=== PATIENT | female | born 1970 | race Hispanic/Latino ===

== ENCOUNTER → 2018-08-26 | Outpatient (CLI) | payer BC | LOC: MAMMO 09:18 | PROVIDERS: ATTEND Obstetrics & Gynecology | DX: Z12.31 Encounter for screening mammogram for malignant neoplasm of breast (principal) | CPT/HCPCS: 77067 ==

== ENCOUNTER → 2018-09-24 | Outpatient (CLI) | payer BC ==
--- NOTE | 2018-09-25 08:41 | Diagnostic Imaging Report ---
#[id number] - MGDXRT #UNILATERAL RIGHT DIGITAL DIAGNOSTIC MAMMOGRAM WITH SPOT COMPRESSION: 09/24/2018 Comparison is made to exams dated: 08/26/2018 mammogram and 03/18/2016 mammogram - [facility]. Current study contains 3 films. The tissue of the right breast is heterogeneously dense. This may lower the sensitivity of mammography. There is a 1.7 cm mass in the right breast at 1 o'clock middle depth with an associated calcification. No other significant masses or calcifications are seen in the breast. IMPRESSION: INCOMPLETE: NEEDS ADDITIONAL IMAGING EVALUATION The 1.7 cm mass in the right breast is indeterminate. An ultrasound is recommended and will be performed today. Follow-up with ACR/ACS guidelines. Bert Nunes Jr., D.O. cw/:09/24/2018 13:37:17 Float Phlebotomist: Mayuri SYED(Xin)(Isabel), [facility] Mammogram BI-RADS: 0 Indeterminate
--- NOTE | 2018-09-25 08:41 | Diagnostic Imaging Report ---
#[id number] - USBRELIMRT ULTRASOUND OF THE RIGHT BREAST : 09/24/2018 Comparison is made to exam dated: 09/24/2018 mammogram - [facility]. Color flow and real-time ultrasound were performed on the right breast with scanning from 12-3 o'clock. -There is a small cyst at 12 o'clock 1 cm from the nipple measuring 0.3 x 0.3 x 0.3 cm -There is a hypoechoic nodule with a single foci of calcification at 1 o'clock 2 cm from the nipple measuring 1.0 x 0.6 x 1.0 cm. 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 IMPRESSION: PROBABLY BENIGN - FOLLOW-UP RECOMMENDED A follow-up mammogram and an ultrasound in 6 months is recommended to demonstrate stability. The patient was notified of the need for followup unilateral mammography and ultrasound. Bert Nunes Jr., D.O. cw/:09/24/2018 13:43:33 Deicer Inspector [employer]: DAWSON [facility] [employer], [facility] letter sent: Followup Recommended Ultrasound BI-RADS: 3 Probably benign
== END ==
LOC: MAMMO 08:50
PROVIDERS: ATTEND Obstetrics & Gynecology
DX: R92.8 Other abnormal and inconclusive findings on diagnostic imaging of breast (principal)

== ENCOUNTER → 2020-08-25 | Outpatient (CLI) | payer BC | LOC: MAMMO 09:08 | PROVIDERS: ATTEND Obstetrics & Gynecology | DX: Z12.31 Encounter for screening mammogram for malignant neoplasm of breast (principal) | CPT/HCPCS: 77067 ==

== ENCOUNTER → 2021-09-14 | Outpatient (CLI) | payer BC | LOC: MAMMO 10:04 | PROVIDERS: ATTEND Obstetrics & Gynecology | DX: Z12.31 Encounter for screening mammogram for malignant neoplasm of breast (principal) | CPT/HCPCS: 77067 ==

== ENCOUNTER → 2022-10-11 | Outpatient (CLI) | payer BC | LOC: DX 09:43 | PROVIDERS: ATTEND Obstetrics & Gynecology | DX: Z12.31 Encounter for screening mammogram for malignant neoplasm of breast (principal); M85.88 Other specified disorders of bone density and structure, other site | CPT/HCPCS: 77067; 77080 ==